=== PATIENT | female | born 1945 | race Caucasian/White ===

== ENCOUNTER → 2019-05-10 | Day surgery (SDC) | payer MEDICARE ==
[~2019-05-10] VITALS: Ht 154.9 cm; Wt 58.5 kg
[2019-05-10] VITALS (8 sets, daily range): BP systolic 89–120; BP diastolic 51–62
[~2019-05-10] MED LIST: PAROXETINE HCL10 MG PO; POTASSIUM CHLO20 ME3 PO; PROCHLORPERAZIN10 MG PO; SERTRALINE HYDR50 MG PO; [UNRECOGNIZED DRUG - OTHER] PO; [UNRECOGNIZED DRUG - OTHER] PO
--- NOTE | ~2019-05-10 | O ---
[place], [place] OPERATIVE NOTE NAME: BEN WILCOX UNIT #: [id number] ROOM: [facility] [birth year] DOS: 05/10/2019 GASTROENDOSCOPIC REPORT INDICATIONS: This is a 73-year-old patient who has come last night to the office with chief complaint of abdominal pain, unable to swallow, cellulitis of the abdominal wall. The patient has had 3-4 days ago a PEG tube placed in [facility]. The patient with pharyngeal carcinoma. The patient is status post chemoradiation. The patient comes to the outpatient facility today with abdominal pain intensified. PROCEDURE: Today's procedure part of investigation is panendoscopy plus removal of migrated PEG tube plus I and D of existing ostomy site and packing with iodoform gauze. REPORT: After putting the patient in left lateral supine position, scope was introduced. Thereafter, under direct visualization, advanced through the length of esophagus without difficulty. As I approached inside the gastric pouch, a migrated PEG tube was photographically documented. A large volume of pus been drained anteriorly from the site of the PEG. This was robotically and anaerobic cultured from the center of the drainage of fresh pus from the wound at the ostomy site. The scope was negotiated to pyloric ring, which is benign. PEG was under direct visualization, pulled out and copious volume of Betadine was used for deep scrubbing and removal and massaging large volume of pus subcutaneously. Cellulitis of abdominal wall documented. At this stage, iodoform gauze half inch was used and wound was deeply packed. Neosporin ointment was added to the area. Photographic series from deep impaction and dressing of the wound was obtained internally. From outside pressure banding was applied by physician and tolerated the procedure well. IMPRESSION: EGD plus removal of migrated PEG tube plus I and D of ostomy site and packing with iodoform gauze, pressure banding, presence of abdominal wall cellulitis. PLAN AND DISCUSSION: The patient is allergic to PENICILLIN AND SULFA. Therefore, vancomycin 1 gram IV was organized to be given over 2 hours. She was IV hydrated at the same time. She was given a dose of ciprofloxacin 400 mg IV at the same time. She is telling me that she does not want to stay overnight here ____ hospital. She wants to be home. The patient was advised to the fact that she may need further management and continuation of antibiotic coverage in case she is agreeable to go to the closest hospital ____ to be [facility] [place] and she does going to make arrangement for antibiotic therapy of cellulitis of abdominal wall and TPN peripherally and keeping n.p.o. until abdominal wound and PEG site closure happens and healing happens, iodoform gauze dressing to continue daily. Supportive management. 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 Thank you. Comfort therapy is going to be undertaken. [place], [place] OPERATIVE NOTE NAME: BEN WILCOX UNIT #: [id number] ROOM: DOCTOR: YANA COTTO,BRUCE BIRTHDATE: [birth year] BRUCE MILLAN MD CM:OPRECORD:OPERATIVE NOTE [id number] [id number] BRUCE MILLAN MD 05/10/19 1616 interface
[2019-05-19 13:04] LABS: ANAEROBE RESULT 1 Prevotella buccae (.)
== END | disposition home or self-care (01) ==
LOC: SDC 08:41
PROVIDERS: Internal Medicine Gastroenterology
DX: K94.22 Gastrostomy infection (principal); L03.311 Cellulitis of abdominal wall; K29.70 Gastritis, unspecified, without bleeding; I10 Essential (primary) hypertension; Z98.890 Other specified postprocedural states; Z79.899 Other long term (current) drug therapy; Z88.0 Allergy status to penicillin; Z88.2 Allergy status to sulfonamides; Z85.89 Personal history of malignant neoplasm of other organs and systems